=== PATIENT | female | born 1970 | race Hispanic/Latino ===

== ENCOUNTER → 2020-05-30 | Day surgery (SDC) | payer OTHER ==
[~2020-05-30] MED LIST: FENTANYL CITRATE/PF 100MCG/2 ML INJ ONE; LOSARTAN POTAS100 MG PO; MIDAZOLAM HCL 2 MG/2 ML VIAL ONE; PROPOFOL IV EMULSION 10 MG/ML 20 ML VIAL ONE
[2020-05-30 11:00] VITALS: BP 139/89
== END | disposition home or self-care (01) ==
LOC: OR 06:33
PROVIDERS: ATTEND Internal Medicine Gastroenterology
DX: Z12.11 Encounter for screening for malignant neoplasm of colon (principal); K57.30 Diverticulosis of large intestine without perforation or abscess without bleeding; K64.8 Other hemorrhoids; K21.9 Gastro-esophageal reflux disease without esophagitis; I10 Essential (primary) hypertension; Z71.3 Dietary counseling and surveillance; E66.01 Morbid (severe) obesity due to excess calories; Z01.810 Encounter for preprocedural cardiovascular examination; Z01.812 Encounter for preprocedural laboratory examination; Z11.59 Encounter for screening for other viral diseases; Z68.41 Body mass index [BMI] 40.0-44.9, adult
CPT/HCPCS: 45378; 81025; 93005; J2704; U0002; J2250; J3010